=== PATIENT | female | born 1990 | race Caucasian/White ===

== ENCOUNTER 2025-04-24 07:00 | Inpatient (IN) | payer OTHER ==
[~2025-04-24] VITALS: Ht 157.5 cm; Wt 68.9 kg
[2025-04-24] VITALS (8 sets, daily range): BP systolic 105–119; BP diastolic 57–76
[2025-04-24] MEDS ORDERED: OXYTOCIN 500 ML IV ONE (07:45)
[2025-04-24] MEDS ORDERED: MORPHINE SULFATE 4 MG/ML CARTRIDGE IV PRN (07:45)
[2025-04-24] MEDS ORDERED: AMPICILLIN SODIUM 2,000 MG VIAL ONE (08:07)
[2025-04-24] MEDS ORDERED: AMPICILLIN SODIUM 2,000 MG VIAL IV ONE (08:30)
[2025-04-24 08:50] LABS: BASO % 0.1 % (0.1-1.2); EOS # 0.05 (0.04-0.54); EOS % 0.6 % (0.7-7.0); LYMPH # 1.18 (1.18-3.74); LYMPH % 13.7 % (19.3-53.1); MEAN PLATELET VOLUME 10.70 fl (9.4-12.4); MONO # 0.70 (0.24-0.82); MONO % 8.1 % (4.7-12.5); NEUT # 6.59 (1.56-6.13); NEUT % 76.5 % (34.0-71.1); RED CELL DISTRIBUTION WIDTH 12.1 % (11.6-14.4)
[2025-04-24 09:16] LABS: INR < 0.93
[2025-04-24] MEDS ORDERED: ERYTHROMYCIN BASE OPHT 1GM EACH TUBE OP ONE (09:38)
[2025-04-24] MEDS ORDERED: CHLORHEXIDINE GLUCONATE 120 ML BOTTLE TOP ONE ×2 (09:38→10:45)
[2025-04-24] MEDS ORDERED: LIDOCAINE HCL 1% 10ML VIAL ONE (09:38)
[2025-04-24] MEDS ORDERED: OXYTOCIN 20 UNITS/1000ML RL PIGGYBAG IV ONE (09:38)
[2025-04-24 09:41] LABS: ALT/SGPT 15.0 U/L (12-78); AST/SGOT 18.0 U/L (15-37); BILIRUBIN TOTAL 0.21 mg/dL (0.3-1.2); BUN CREA RATIO 18.0 (7.0-25.0); CREATININE SERUM 0.5 mg/dL (0.55-1.02); GFR 141.23; GLOBULINA 3.6 G/DL (2.4-3.5); GLUCOSE FASTING 72.0 mg/dL (65-100); OSMOLALITY SERUM 280.0 MOSM/KG (275-295)
[2025-04-24] MEDS ORDERED: KETOROLAC TROMETHAMINE 30 MG VIAL IV NR (10:45)
[2025-04-24] MEDS ORDERED: OXYTOCIN 1,000 ML IV SCH (10:45)
[2025-04-24] MEDS ORDERED: AMPICILLIN SODIUM 1,000 MG VIAL IV SCH (13:00)
[2025-04-24] MEDS ORDERED: OXYTOCIN 10 UNITS/ML VIAL ONE (13:24)
[2025-04-25 00:17] VITALS: BP 102/67
[2025-04-25 07:35] LABS: BASO % 0.2 % (0.1-1.2); EOS # 0.05 (0.04-0.54); EOS % 0.5 % (0.7-7.0); LYMPH # 1.45 (1.18-3.74); LYMPH % 13.9 % (19.3-53.1); MEAN PLATELET VOLUME 10.70 fl (9.4-12.4); MONO # 0.79 (0.24-0.82); MONO % 7.6 % (4.7-12.5); NEUT # 8.07 (1.56-6.13); NEUT % 77.1 % (34.0-71.1); RED CELL DISTRIBUTION WIDTH 12.1 % (11.6-14.4)
[2025-04-25 08:48] VITALS: BP 114/82
[2025-04-25 16:00] VITALS: BP 116/72
[2025-04-26 00:34] VITALS: BP 119/81
[2025-04-26 08:00] VITALS: BP 113/74
== END 2025-04-26 13:11 | disposition home or self-care (01) | DRG 805 ==
LOC: OB/GYN 07:00 → LDR 07:00 → OB/GYN 11:26
PROVIDERS: Obstetrics & Gynecology Gynecology; ADMIT Obstetrics & Gynecology; ATTEND Obstetrics & Gynecology
PROC: 10E0XZZ Delivery of Products of Conception, External Approach (ICD-10-PCS; principal; 2025-04-24)
PROC: 0KQM0ZZ Repair Perineum Muscle, Open Approach (ICD-10-PCS; 2025-04-24)
PROC: 4A1HXCZ Monitoring of Products of Conception, Cardiac Rate, External Approach (ICD-10-PCS; 2025-04-24)
DX: O70.1 Second degree perineal laceration during delivery (principal); O60.14X0 Preterm labor third trimester with preterm delivery third trimester, not applicable or unspecified; Z37.0 Single live birth; Z3A.36 36 weeks gestation of pregnancy